=== PATIENT | female | born 1995 | race Caucasian/White ===

== ENCOUNTER 2017-03-07 07:09 | Emergency (ER) | payer OTHER ==
[2017-03-07] MEDS ORDERED: LACTATED RINGERS 1,000 ML IV ONE ×3 (07:37→11:43)
[2017-03-07 07:50] LABS: BASOPHIL# 0.1 X 10^3uL (0.0-0.1); BASOPHILS 0.8 % (0.0-2.0); EOSINOPHILS 2.5 % (0.0-6.0); EOSINOPHILS# 0.2 X 10^3uL (0.0-0.4); HEMATOCRIT 43.4 % (36.0-48.0); HEMOGLOBIN 14.4 g/dL (12.0-16.0); LYMPHOCYTES 45.1 % (20.0-40.0); MEAN CELL VOLUME 84.4 fL (80.0-100.0); MEAN CORPUS. HGB CONCENTRATION 33.1 g/dL (32.0-36.0); MEAN CORPUSCULAR HEMOGLOBIN 27.9 pg (29.0-35.0); MEAN PLATELET VOLUME 8.5 fL (7.4-10.4); MONOCYTES# 0.7 X 10^3uL (0.2-1.0); NEUTROPHILS 40.6 % (54.0-75.0); NEUTROPHILS# 2.7 X 10^3uL (2.6-6.7); PLATELET COUNT 333 X 10^3uL (130-440); RED BLOOD COUNT 5.14 X 10^6uL (4.20-6.10); RED CELL DISTRIBUTION WIDTH 13.3 % (11.5-14.5); WHITE BLOOD COUNT 6.7 X 10^3uL (3.9-10.7)
[2017-03-07] MEDS ORDERED: INSULIN REGULAR HUMAN 100 UNITS/ML ML ONE (07:56)
[2017-03-07 08:15] LABS: BETA HYDROXYBUTYRATE > 2.00 mmol/L (<0.40)
[2017-03-07 08:24] LABS: A/G RATIO 1.4; ALBUMIN 4.7 g/dL (3.5-5.0); ALKALINE PHOSPHATASE 156 U/L (38-126); ALT 39 U/L (9-52); AST 20 U/L (14-36); BILIRUBIN, TOTAL 0.5 mg/dL (0.2-1.3); BLOOD UREA NITROGEN 17 mg/dL (7-17); CALCIUM 9.4 mg/dL (8.4-10.2); CHLORIDE 97 mmol/L (98-107); CREATININE 0.9 mg/dL (0.5-1.0); EST GLOMERULAR FILTRATION RATE > 60 mL/min; MAGNESIUM 1.8 mg/dL (1.6-2.3); POTASSIUM 4.2 mmol/L (3.5-5.1); SODIUM 131 mmol/L (137-145)
[2017-03-07 08:29] LABS: GLUCOSE 465 mg/dL (70-100)
[2017-03-07 10:14] LABS: ARTERIAL BLOOD GAS PCO2 38.3 mmHg (35-45)
[2017-03-07 10:15] LABS: ARTERIAL BLOOD GAS HCO3 18.1 mmol/L (22-26)
[2017-03-07 10:18] LABS: BLOOD UREA NITROGEN 14 mg/dL (7-17); CHLORIDE 103 mmol/L (98-107); CREATININE 0.4 mg/dL (0.5-1.0); EST GLOMERULAR FILTRATION RATE > 60 mL/min; GLUCOSE 190 mg/dL (70-100); SODIUM 137 mmol/L (137-145)
[2017-03-07 10:20] LABS: URINE MUCUS NONE SEEN (Up to 25%)
[2017-03-07 10:29] LABS: URINE APPEARANCE SLIGHTLY CLOUDY; URINE BILIRUBIN 0.5 mg/100ml (1+) (NEGATIVE); URINE BLOOD 250 Ery/uL (3+) (NEGATIVE); URINE COLOR RED; URINE GLUCOSE 500mg/dL (2+) (NEGATIVE); URINE KETONE 100mg/dL (3+) (NEGATIVE); URINE LEUKOCYTE ESTERASE NEGATIVE (NEGATIVE); URINE NITRITE NEGATIVE (NEGATIVE); URINE PROTEIN 30mg/dL (1+) (NEG - TRACE); URINE UROBILINOGEN 0.2mg/dL (Normal) (NEG-1mg/dL)
[2017-03-07 10:30] LABS: URINE BACTERIA <10 ORGANISMS/hpf (<10/hpf); URINE SQUAMOUS EPITHELIAL CELL 0-5/hpf (<= 15/hpf); URINE WBC 0-4/hpf (0-4/hpf)
[2017-03-07 12:47] LABS: BLOOD UREA NITROGEN 12 mg/dL (7-17); CALCIUM 8.7 mg/dL (8.4-10.2); CHLORIDE 102 mmol/L (98-107); CREATININE 0.5 mg/dL (0.5-1.0); EST GLOMERULAR FILTRATION RATE > 60 mL/min; GLUCOSE 164 mg/dL (70-100); POTASSIUM 4.2 mmol/L (3.5-5.1); SODIUM 133 mmol/L (137-145)
[2017-03-07 12:52] LABS: BETA HYDROXYBUTYRATE > 2.00 mmol/L (<0.40)
--- NOTE | 2017-03-07 14:00 | ER PHYSICIAN DOCUMENTATION ---
Physician Documentation [facility] Name:Chantal Izaguirre Age:21 yrs Sex:Female :1995 Arrival Date:03/07/2017 Time:07:09 Bed4 Private MD: Charles Casey Disposition: 03/08 21:51 Chart complete. tl1 Disposition: 03/07/17 13:08 Discharged to Home/Self Care. Impression: Diabetes with Hyperglycemia, Diabetic Ketoacidosis, Type 1 Uncontrolled w/o Coma, Hematuria, Gross, Dehydration, Tachycardia Unspecified. - Condition is Good. - Discharge Instructions: DEHYDRATION (6y-Adult), DIABETES, General Info, HEMATURIA, DIABETIC DIET. - Medical Reconciliation form form. - Follow up: Private Physician; When: 1 - 2 days; Reason: Recheck today's complaints, Continuance of care. - Problem is new. - Symptoms have improved. - Notes: Try to stay on top of your blood sugar and keep it below 180. Drink plenty of fluids. Return tomorrow if your sugars continue to be uncontrolled or if you do not continue to improve. Make sure to follow up with your regular doctor in [place] within 2 days. HPI: 03/07 08:16 This 21 yrs old Female presents to ER via Private Vehicle with complaints of tl1 High Blood Sugar. 08:16 The patient or guardian reports generalized fatigue, generalized weakness, tl1 hyperglycemia, polydipsia, polyuria, that was potentially precipitated by possibly a recent dental infection. Onset: The symptom(s)/episode began/occurred gradually, 2 day(s) ago. Associated signs and symptoms: Pertinent negatives: anorexia, decreased urine output, diarrhea. Current symptoms: In the emergency department the patient's symptoms have improved, moderately. The patient has experienced similar episodes in the past, multiple times, with the last episode occurring November 2016 admission for DKA. Historical: - Allergies: Betadine; lorabid; c chlor; - Home Meds: 1. Novolog Sub-Q 2. trugio 3. Ibuprofen Oral 4. lamotil - PMHx: DIABETES - IDDM; Excessive Pancreatic Insufficiency; Gastroperesis; - PSHx: EAR TUBES; - Tetanus: < 10 years. - Ebola Screening: : Patient negative for fever greater than or equal to 101.5 degrees Fahrenheit, and additional compatible Ebola Virus Disease symptoms. Patient denies exposure to infectious person. Patient denies travel to an Ebola-affected area in the 21 days before illness onset. No symptoms or risks identified at this time. . - Immunization history: Flu Vaccine < 1 year. - Social history: Smoking status: Patient states was never smoker of tobacco. ROS: 08:20 Constitutional: Positive for fatigue, malaise, Negative for chills, fever. tl1 08:20 Neck: Negative for injury or acute deformity, stiffness. 08:20 Cardiovascular: Negative for chest pain, edema. 08:20 Respiratory: Negative for cough, shortness of breath, wheezing. 08:20 Abdomen/GI: Negative for abdominal pain, nausea, vomiting, diarrhea, constipation. 08:20 : Positive for urinary frequency, polyuria, Negative for hematuria, flank pain, burning with urination, difficulty urinating, foul smelling urine, vaginal bleeding, vaginal discharge. 08:20 Skin: Negative for rash. Exam: 08:20 Constitutional: The patient appears alert, awake, well developed, well groomed, well tl1 nourished, uncomfortable. 08:20 Head/face: Exam is negative for acute changes. 08:20 Eyes: Exam is negative for acute changes. 08:20 ENT: Mouth: is normal, Oral mucosa: pink and intact, dry, Tongue: is normal, Posterior pharynx: is normal. 08:20 Neck: ROM/movement: no acute changes, Lymph nodes: no appreciated lymphadenopathy. 08:20 Cardiovascular: Rate: tachycardic, Rhythm: regular, Heart sounds: normal, Edema: is not appreciated, JVD: is not appreciated. 08:20 Respiratory: Respirations: normal, Breath sounds: are normal, no rales, rhonchi, no stridor, no wheezing. 08:20 Abdomen/GI: Inspection: abdomen appears normal, Bowel sounds: active, Palpation: abdomen is soft and non-tender, mass, is not appreciated. 08:20 Back: CVA tenderness, is absent. 08:20 Skin: Exam negative for acute changes. 08:20 Neuro: Exam negative for acute changes. Vital Signs: 07:15 BP 124 / 80; Pulse 106; Resp 22; Temp 97.5(O); Pulse Ox 98% on R/A; Weight 73.94 kg tg (R); Height 5 ft. 7 in. (170.18 cm) (R); Pain 3/10; 07:47 BP 105 / 76 (auto/); ma 07:52 Pulse 103 MON; Resp 20; Pulse Ox 97% ; ma 08:00 BP 101 / 75 (auto/); ma 08:02 Pulse 105 MON; Resp 15; Pulse Ox 97% ; ma 08:30 BP 111 / 73 (auto/); lpr 08:32 Pulse 97 MON; Resp 16; Pulse Ox 99% ; lpr 09:00 BP 111 / 74 (auto/); lpr 09:02 Pulse 101 MON; Resp 17; Pulse Ox 97% ; lpr 09:30 BP 103 / 66 (auto/); lpr 09:32 Pulse 94 MON; Resp 16; Pulse Ox 92% ; lpr 10:00 BP 107 / 71 (auto/); ma 10:02 Pulse 99 MON; Resp 9; Pulse Ox 94% ; ma 10:15 BP 111 / 72 (auto/); ma 10:17 Pulse 96 MON; Resp 14; Pulse Ox 97% ; ma 11:00 BP 108 / 67 (auto/); ma 11:02 Pulse 96 MON; Resp 25; Pulse Ox 94% ; ma 11:12 BP 108 / 57; Pulse 97; Resp 16; Pulse Ox 95% on R/A; tg 11:30 BP 110 / 66 (auto/); ma 11:32 Pulse 103 MON; Resp 16; Pulse Ox 95% ; ma 13:46 BP 110 / 61; Pulse 102; Resp 18; Pulse Ox 95% on R/A; Pain 0/10; tg 07:15 Body Mass Index 25.53 (73.94 kg, 170.18 cm) tg MDM: 07:43 Patient medically screened. tl1 13:00 Differential diagnosis: DKA, hyperglycemia. Data reviewed: vital signs, nurses notes, tl1 lab test result(s), CBC, electrolytes, hepatic panel, urinalysis, and as a result, I will discharge patient. Counseling: I had a detailed discussion with the patient and/or guardian regarding: the historical points, exam findings, and any diagnostic results supporting the discharge/admit diagnosis, lab results, the need for outpatient follow up, the need for further work-up and treatment in the hospital. Medication response: The patient's symptoms have improved, Insulin, 3 Liters of LR.. Response to treatment: the patient's symptoms have markedly improved after treatment, patient is well hydrated. and as a result, I will discharge patient, administer IV fluids, LR bolus. ED course: She steadily improved, but did remain mildly tachcardic. She was agreeable to being admitted here, but I spoke with Dr Keita who felt that we could not manage DKA appropriately at this hospital. Maria C steadily improved and had decreasing blood sugars and a rising bicarb, kept down a meal and was drinking water without any problems. She is fatigued and does not plan to go back to work. She is staying up here in an apartment and will stay the night and drive home tomorrow. I encouraged her to be vigilant with her blood glucose control and to drink extra water. She will return to the ED for concerning blood sugars or recurrent polyuria, or if worse in any way. She is to f/u with her PCP in [facility] within the next few days.. 03/07 08:05 Order name: CBC AUTO DIF, MDIF/RMOR IF IND; Complete Time: : EDMS 03/07 08:21 Interpretation: WHITE BLOOD COUNT 6.7; HEMOGLOBIN 14.4; HEMATOCRIT 43.4; PLATELET COUNT tl1 333. 03/07 08:16 Order name: BETA HYDROXYBUTYRATE; Complete Time: 09: EDMS 03/07 08:21 Interpretation: Abnormal: BETA HYDROXYBUTYRATE > 2.00. tl1 03/07 08:30 Order name: COMPREHENSIVE METABOLIC PANEL; Complete Time: 09: EDMS 03/07 09:05 Interpretation: SODIUM 131; CHLORIDE 97; CARBON DIOXIDE 11; GLUCOSE 465; ALKALINE tl1 PHOSPHATASE 156. 03/07 08:30 Order name: MAGNESIUM; Complete Time: 09: EDMS 03/07 09:05 Interpretation: Normal: MAGNESIUM 1.8. tl1 03/07 08:30 Order name: LACTATE; Complete Time: 09: EDMS 03/07 09:01 Interpretation: Normal: LACTATE 2.0. tl1 03/07 10:15 Order name: ARTERIAL BLOOD GAS; Complete Time: 10:30 EDMS 03/07 11:37 Interpretation: ARTERIAL BLOOD GAS, pH ONLY 7.28; ARTERIAL BLOOD GAS PCO2 38.3; tl1 ARTERIAL BLOOD GAS PO2 56; ARTERIAL BLOOD GAS HCO3 18.1; ARTERIAL BLOOD GAS TOTAL CO2 19; ARTERIAL BLOOD GAS BASE EXCESS -9; ARTERIAL BLD GAS O2 SATURATION 85. 03/07 10:19 Order name: BASIC METABOLIC PANEL; Complete Time: 10:30 EDMS 03/07 11:37 Interpretation: SODIUM 137; POTASSIUM 4.0; CHLORIDE 103; CARBON DIOXIDE 18; GLUCOSE tl1 190; BLOOD UREA NITROGEN 14; CREATININE 0.4. 03/07 10:31 Order name: UA W/ MICRO -CULTURE IF IND; Complete Time: 11:40 EDMS 03/07 11:38 Interpretation: Abnormal: URINE COLOR RED; URINE PROTEIN 30mg/dL (1+); URINE GLUCOSE tl1 500mg/dL (2+); URINE KETONE 100mg/dL (3+); URINE BILIRUBIN 0.5 mg/100ml (1+); URINE BLOOD 250 Shadi/uL (3+); URINE RBC >100/hpf; URINE WBC 0-4/hpf. 03/07 12:42 Order name: BETA HYDROXYBUTYRATE; Complete Time: 13:07 EDMS 03/07 12:50 Order name: BASIC METABOLIC PANEL; Complete Time: 13:07 EDMS 03/07 13:00 Interpretation: SODIUM 133; POTASSIUM 4.2; CHLORIDE 102; CARBON DIOXIDE 19; GLUCOSE tl1 164; BLOOD UREA NITROGEN 12; CREATININE 0.5. 03/07 11:42 Order name: Diet: diabetic lunch; Complete Time: 11:56 tl1 03/07 07:25 Order name: FSBS; Complete Time: 07:42 tg 03/07 07:25 Order name: Pulse Ox Continuous; Complete Time: 07:42 tg 03/07 08:27 Order name: FSBS; Complete Time: 08:27 tg 03/07 10:22 Order name: FSBS; Complete Time: 10:23 ma 03/07 11:11 Order name: FSBS; Complete Time: 11:12 tg Dispensed Medications: 07:53 Drug: Insulin Regular Human 6 units; Route: IVP; Infused Over: 2 mins; Site: left tg antecubital; 08:32 Follow up: Response: No adverse reaction tg 07:53 Drug: LR - Lactated Ringers Solution 1000 ml; Route: IV; Rate: bolus; Site: left tg antecubital; Delivery: [place] Tubing; 08:32 Follow up: IV Status: Completed infusion; IV Intake: 1000ml tg 08:33 Drug: LR - Lactated Ringers Solution 1000 ml; Route: IV; Rate: bolus; Site: left tg antecubital; Delivery: [place] Tubing; 10:00 Follow up: IV Status: Completed infusion; IV Intake: 1000ml tg 11:50 Drug: LR - Lactated Ringers Solution 1000 ml; Route: IV; Rate: bolus; Site: left tg antecubital; Delivery: [place] Tubing; 13:13 Follow up: IV Status: Completed infusion; IV Intake: 1000ml tg 11:50 CANCELLED (Physician Discretion): LR - Lactated Ringers Solution 1000 ml IV at 999 tg ml/hr once Point of Care Testing: Blood Glucose: 07:15 Blood Glucose: 530 mg/dL; tg 08:28 Blood Glucose: 393 mg/dL; tg 09:45 Blood Glucose: 196 mg/dL; lpr 10:21 Blood Glucose: 203 mg/dL; ma 11:11 Blood Glucose: 159 mg/dL; tg 13:48 Blood Glucose: 175 mg/dL; tg Ranges: Critical Glucose Levels:Adult <50 mg/dl or >400 mg/dl <40 mg/dl or >180 mg/dl Signatures: Murali Ramos RN RN tg Abuso, Melanie, RN RN ma Leigh, Tom, MD MD tl1
--- NOTE | 2017-03-07 14:00 | ER NURSING DOCUMENTATION ---
Nurse's Notes Name:Chantal Izaguirre Age:21 yrs Sex:Female :1995 Arrival Date:03/07/2017 Time:07:09 Bed4 Private MD: Diagnosis:Diabetes with Hyperglycemia;Diabetic Ketoacidosis, Type 1 Uncontrolled w/o Coma;Hematuria, Gross;Dehydration;Tachycardia Unspecified Presentation: 03/07 07:12 Presenting complaint: Patient states: "I feel dizzy like I'm going into DKA." Hx of tg DKA, diabetic since age 6. Transition of care: patient was not received from another setting of care. 07:12 Method Of Arrival: Private Vehicle tg 07:12 Acuity: GARTH 2 tg Triage Assessment: 07:59 General: Appears uncomfortable, Behavior is cooperative, quiet, Denies fever, chills. tg Pain: Complains of pain in left flank Pain currently is 3 out of 10 on a pain scale. EENT: Oral mucosa is dry. Neuro: Level of Consciousness is awake, alert, Oriented to person, place, time, event, Speech is normal. Cardiovascular: Capillary refill < 3 seconds. Respiratory: Airway is patent Respiratory effort is unlabored, Respiratory pattern is hyperventilation. GI: Reports vomiting, Denies nausea. Derm: Skin is dry, Skin is pink, warm & dry. Historical: - Allergies: Betadine; lorabid; c chlor; - Home Meds: 1. Novolog Sub-Q 2. trugio 3. Ibuprofen Oral 4. lamotil - PMHx: DIABETES - IDDM; Excessive Pancreatic Insufficiency; Gastroperesis; - PSHx: EAR TUBES; - Tetanus: < 10 years. - Ebola Screening: : Patient negative for fever greater than or equal to 101.5 degrees Fahrenheit, and additional compatible Ebola Virus Disease symptoms. Patient denies exposure to infectious person. Patient denies travel to an Ebola-affected area in the 21 days before illness onset. No symptoms or risks identified at this time. . - Immunization history: Flu Vaccine < 1 year. - Social history: Smoking status: Patient states was never smoker of tobacco. Screenin:03 Infectious Disease Risk Unable to Obtain. Abuse screen: Denies threats or abuse. Denies tg injuries from another. Nutritional screening: No deficits noted. Assessment: 08:02 See Triage Assessment done by same RN. tg Vital Signs: 07:15 BP 124 / 80; Pulse 106; Resp 22; Temp 97.5(O); Pulse Ox 98% on R/A; Weight 73.94 kg tg (R); Height 5 ft. 7 in. (170.18 cm) (R); Pain 3/10; 07:47 BP 105 / 76 (auto/); ma 07:52 Pulse 103 MON; Resp 20; Pulse Ox 97% ; ma 08:00 BP 101 / 75 (auto/); ma 08:02 Pulse 105 MON; Resp 15; Pulse Ox 97% ; ma 08:30 BP 111 / 73 (auto/); lpr 08:32 Pulse 97 MON; Resp 16; Pulse Ox 99% ; lpr 09:00 BP 111 / 74 (auto/); lpr 09:02 Pulse 101 MON; Resp 17; Pulse Ox 97% ; lpr 09:30 BP 103 / 66 (auto/); lpr 09:32 Pulse 94 MON; Resp 16; Pulse Ox 92% ; lpr 10:00 BP 107 / 71 (auto/); ma 10:02 Pulse 99 MON; Resp 9; Pulse Ox 94% ; ma 10:15 BP 111 / 72 (auto/); ma 10:17 Pulse 96 MON; Resp 14; Pulse Ox 97% ; ma 11:00 BP 108 / 67 (auto/); ma 11:02 Pulse 96 MON; Resp 25; Pulse Ox 94% ; ma 11:12 BP 108 / 57; Pulse 97; Resp 16; Pulse Ox 95% on R/A; tg 11:30 BP 110 / 66 (auto/); ma 11:32 Pulse 103 MON; Resp 16; Pulse Ox 95% ; ma 13:46 BP 110 / 61; Pulse 102; Resp 18; Pulse Ox 95% on R/A; Pain 0/10; tg 07:15 Body Mass Index 25.53 (73.94 kg, 170.18 cm) tg ED Course: 07:10 Patient arrived in ED. ds 07:12 Murali Ramos, RN is Primary Nurse. tg 07:13 Triage completed. tg 07:29 Missed attempts: 20 gauge X 1 in right antecubital area, Bleeding controlled, band aid tg applied, catheter tip intact. 07:30 Inserted peripheral IV: 20 gauge in left antecubital area and blood collected. tg 07:43 Charles Acuna MD is Attending Physician. tl1 08:02 Arm band placed on Bed in low position Call Light in Reach Gowned HOB Elevated Side tg rails up x1. 08:03 Valuables Remains with patient. Pulse ox on. Cardiac Monitoring On for Nurse Monitoring tg only. 11:13 Appears to be sleeping. tg Administered Medications: 07:53 Drug: Insulin Regular Human 6 units; Route: IVP; Infused Over: 2 mins; Site: left tg antecubital; 08:32 Follow up: Response: No adverse reaction tg 07:53 Drug: LR - Lactated Ringers Solution 1000 ml; Route: IV; Rate: bolus; Site: left tg antecubital; Delivery: [place] Tubing; 08:32 Follow up: IV Status: Completed infusion; IV Intake: 1000ml tg 08:33 Drug: LR - Lactated Ringers Solution 1000 ml; Route: IV; Rate: bolus; Site: left tg antecubital; Delivery: [place] Tubing; 10:00 Follow up: IV Status: Completed infusion; IV Intake: 1000ml tg 11:50 Drug: LR - Lactated Ringers Solution 1000 ml; Route: IV; Rate: bolus; Site: left tg antecubital; Delivery: [place] Tubing; 13:13 Follow up: IV Status: Completed infusion; IV Intake: 1000ml tg 11:50 CANCELLED (Physician Discretion): LR - Lactated Ringers Solution 1000 ml IV at 999 tg ml/hr once Point of Care Testing: Blood Glucose: 07:15 Blood Glucose: 530 mg/dL; tg 08:28 Blood Glucose: 393 mg/dL; tg 09:45 Blood Glucose: 196 mg/dL; lpr 10:21 Blood Glucose: 203 mg/dL; ma 11:11 Blood Glucose: 159 mg/dL; tg 13:48 Blood Glucose: 175 mg/dL; tg Ranges: Intake: 08:32 IV: 1000ml; Total: 1000ml. tg 08:33 PO: 600ml (Water); Total: 1600ml. tg 10:00 IV: 1000ml; Total: 2600ml. tg 13:13 IV: 1000ml; Total: 3600ml. tg Outcome: 09:07 Discharge ordered by . tl1 13:08 Discharge ordered by . tl1 13:46 Discharged to home ambulatory. tg 13:46 Condition: improved 13:46 Discharge Assessment: Patient awake, alert and oriented x 3. No cognitive and/or functional deficits noted. Patient verbalized understanding of disposition instructions. 13:46 Instructed on discharge instructions, follow up and referral plans. 13:46 IV D/Shawn 13:59 Patient left the ED. tg 03/08 09:23 Discharge F/U Call: Unable to reach: no answer lp Signatures: Murali Ramos RN RN tg Yancy Snadra, RN Sivan Martinez ma, RN RN Yamilex Christianson, Mary Patel RN RN Charles Castillo MD MD tl1
== END 2017-03-07 13:59 | disposition home or self-care (01) ==
LOC: ER 07:09
DX: E10.65 Type 1 diabetes mellitus with hyperglycemia (principal); E10.10 Type 1 diabetes mellitus with ketoacidosis without coma; R31.0 Gross hematuria; E86.0 Dehydration; R00.0 Tachycardia, unspecified; R53.83 Other fatigue; R53.1 Weakness; E10.43 Type 1 diabetes mellitus with diabetic autonomic (poly)neuropathy
CPT/HCPCS: 80048; 80053; 81001; 82010; 82803; 83605; 83735; 85025; 96361; 96374; 99284; J1815; J7120